=== PATIENT | male | born 1970 | race African-American/Black ===

== ENCOUNTER 2016-10-22 20:28 | Inpatient (IN) | payer MEDICARE, OTHER ==
--- NOTE | ~2016-10-22 | MR165 ---
[facility] A Service of [facility] & [facility] RADIOLOGY TEXT RESULTS PATIENT: BEN ORELLANA LOCATION: [place] [address]- : [birth year] UNIT #: [id number] AGE: [address]: Dane Gillis MD SEX: M ORDER DR: [id number] [facility] [address] [facility]. [place], [place] [address] [id number] MR#: [id number] Acc #: [id number] NAME: BEN ORELLANA. : 1970 SEX: M STUDY DATE/TIME: 10/23/2016 UNIT: [facility] ROOM: [facility] STUDY DESCRIPTION: MR Shoulder Wo Contrast Rt Attending Physician: Dane Gillis M.D. Ordering Physician: Staff Doctor Not On Primary Care Physician: John Oconnell M.D. MEDICAL IMAGING REPORT This report is preliminary unless electronic signature is present EXAM MRI of the right shoulder without contrast, 10/23/2016. COMPARISON Right shoulder radiograph, 10/22/2016. HISTORY Order states evaluate for septic shoulder. Ortho progress note states fever and right shoulder pain. 46-year-old states yesterday onset of severe right shoulder pain. No trauma or fall. History of MRSA and epidural abscess, as well as osteomyelitis. Diabetic and endstage renal failure. Tenderness over anterior shoulder with significant pain with motion. History sheet states woke up 10/23/2016 a.m. with left shoulder pain. No known injury. Bilateral toe amputations. GFR of 6.2. FINDINGS There is fluid within the acromioclavicular joint extending extra-articularly through a disrupted inferior capsuloligamentous complex. Fluid is noted interposed between the coracoacromial ligament and the distal clavicle. There is also marked subcutaneous inflammation throughout the shoulder girdle region, as well as intraarticular muscular edema of the trapezius, and anterior deltoid. Findings are most compatible with septic arthritis of the AC joint. There is also tracking fluid anterior to the coracoid process. There is no defined sizable abscess. There is only minimal inflammation of the subacromial - subdeltoid bursa. Coracoacromial and coracoclavicular ligaments are intact. There is mild infraspinatus tendinosis with insertional fraying but no tear. The remainder of the rotator cuff is unremarkable. Biceps anchor, biceps tendon, and glenoid labrum are within normal limits. [facility]. [facility] A Service of [facility] RADIOLOGY TEXT RESULTS PATIENT: BNE ORELLANA LOCATION: [place] [address] : [birth year] UNIT #: [id number] AGE: [address]: Dane Gillis MD SEX: M ORDER DR: There is minimal fluid in the glenohumeral joint without surrounding inflammation. There is no definite septic arthritis of the glenohumeral joint. There is no marrow lesion, fracture, or definitive osteomyelitis. There is mild marrow edema of the subarticular clavicle and acromion without T1 marrow replacement. IMPRESSION 1. Findings compatible with septic arthritis of the AC joint with fluid tracking through a deficient inferior capsuloligamentous complex anteriorly. Prominent fluid and inflammation are noted superior to the coracoacromial ligament and extending anterior to the coracoid process. There is, however, no defined fluid collection to suggest an abscess. 2. Extensive superior subcutaneous inflammation or cellulitis. There is also mild edema in the trapezius and deltoid muscles. 3. No MR evidence of septic arthritis of the glenohumeral joint. 4. Mild subarticular marrow edema of the acromion and clavicle adjacent to the AC joint without T1 marrow replacement. There is no definitive osteomyelitis. 5. Infraspinatus tendinosis without a rotator cuff tear. Dictated by... Nga Null M.D. THIS IS AN ELECTRONICALLY VERIFIED REPORT Nga Null M.D. at 10/26/2016 8:36 AM ERIC/melodie TD: 10/24/2016 18:09 JOB #: [id number] MEDICAL IMAGING REPORT Page 1 of 1 COPY
--- NOTE | ~2016-10-22 | OR ---
Unit #: [id number] #: [id number] Patient: BEN MENA [id number] [address] [place], [place] [address] [id number] MR#: [id number] NAME: BEN MENA ROOM: 471 Date of Procedure: 10/24/2016 Admission Date: 10/23/2016 Surgeon: Owen Peters M.D. : 1970 Attending Physician: Dane Gillis M.D. Primary Care Physician: John Oconnell M.D. OPERATIVE REPORT PREOPERATIVE DIAGNOSIS Right acromioclavicular joint septic arthritis. POSTOPERATIVE DIAGNOSIS Right acromioclavicular joint septic arthritis. PROCEDURE PERFORMED Right acromioclavicular joint arthrotomy with irrigation and debridement. ANESTHESIA General. ESTIMATED BLOOD LOSS 10 mL. SPECIMENS Cultures to microbiology. INDICATIONS FOR PROCEDURE Mr. Mena is a 46-year-old gentleman with right shoulder pain and an MRI documenting a septic AC joint arthritis. He is tender over this area. A shoulder exam itself is benign with no evidence of glenohumeral joint septic arthritis. We discussed the operative intervention in the form of incision and drainage of the AC joint. He elects to proceed. DESCRIPTION OF PROCEDURE The patient was identified in the preoperative holding area. The operative site was marked. Preoperative antibiotics were not required. The patient was on standing IV antibiotics. He was brought to the operating room and general anesthetic was induced. He was positioned on the beach-chair table in a semi-recumbent position. The right shoulder was prepped and draped in sterile fashion. An incision was made in a longitudinal fashion overlying the AC joint. Dissection was carried down through the subcutaneous tissues. The deltotrapezial fascia was identified. This was divided over the clavicle and AC joint. The superior capsule was then divided. Upon entering the AC joint, there was a small efflux of purulent fluid or material noted. The meniscal homologue was then debrided and removed from the AC joint, and some infectious-appearing debris was debrided throughout the joint Unit #: [id number] #: [id number] Patient: BEN MENA itself until we had visualization down into the subacromial space. The area was then thoroughly irrigated with bulb saline irrigation. Any remaining infectious-appearing debris or material was debrided with curettes and rongeurs. The deltotrapezial fascia was then closed back with 0 PDS followed by 2-0 PDS in the subcutaneous tissues and a running Monocryl in the skin. DISPOSITION The patient was aroused from anesthesia and transported to the recovery room in stable condition. Dictated by... Barbara Walton/rani TD: 10/24/2016 23:22 JOB #: [id number] OPERATIVE REPORT Page 1 of 1 X Owen Peters MD X PROCEDURE OPERATIVE NOTE
--- NOTE | ~2016-10-22 | CR72 ---
[facility] A Service of [facility] & [facility] RADIOLOGY TEXT RESULTS PATIENT: BEN ORELLANA LOCATION: [place] [address] : 74 UNIT #: [id number] AGE: [address]: Dane Gillis MD SEX: M ORDER DR: [id number] [facility] [address] [facility]. [place], [place] [address] [id number] MR#: [id number] Acc #: [id number] NAME: BEN ORELLANA : 1970 SEX: M STUDY DATE/TIME: 10/22/2016 21:38 UNIT: [facility] ROOM: STUDY DESCRIPTION: CR Chest Single View Portable Attending Physician: Gennaro Nieves D.O. Ordering Physician: Gennaro Nieves D.O. Primary Care Physician: John Oconnell M.D. MEDICAL IMAGING REPORT This report is preliminary unless electronic signature is present EXAM Portable chest HISTORY Chest pain today. FINDINGS Mild patchy infiltrate or atelectasis in the medial right base. Mild elevation of the right hemidiaphragm. Remainder of the lungs are clear. Lower cervical fusion. Low lung volumes accentuate the cardiac size, which is likely near the upper limits of normal. Dictated by... Ulises Diego M.D. THIS IS AN ELECTRONICALLY VERIFIED REPORT Ulises Diego M.D. at 10/23/2016 11:26 PM DFL/psc TD: 10/23/2016 00:14 JOB #: [id number] MEDICAL IMAGING REPORT Page 1 of 1 COPY
--- NOTE | ~2016-10-22 | CO ---
Unit #: [id number] #: [id number] Patient: BEN ORELLANA [id number] [address] [address] [id number] MR#: [id number] NAME: BEN ORELLANA. ROOM: 47 Age: 46 Sex: M Admission Date: 10/23/2016 : 1970 Attending Physician: Dane Gillis M.D. Primary Care Physician: John Oconnell M.D. Consultation Date: 10/28/2016 CONSULTATION REPORT The patient was admitted to Dr. Dane Gillis. REASON FOR CONSULTATION Antibiotic management in a patient with septic shoulder. HISTORY OF PRESENT ILLNESS This is a 46-year-old male with a history of high blood pressure, diabetes, and end-stage renal disease on hemodialysis since February 2016 via a left upper extremity fistula. Patient reports that he awoke with one day of shoulder pain and fever. He came to the emergency room and workup showed septic acromioclavicular joint sepsis. Patient was taken to the operating room where purulent material was found. Blood cultures on admission were positive for MRSA. Patient also had a positive right shoulder OR culture for MRSA and a right foot wound positive for MRSA. Patient was placed on vancomycin and infectious disease was asked to evaluate for length of antibiotic treatment. PAST MEDICAL HISTORY 1. Essential hypertension. 2. Diabetes. 3. MRSA epidural abscess, status post OR in February 2013. 4. Bilateral foot osteomyelitis, status post TMAs with chronic wound on the right foot. 5. End-stage renal disease on dialysis every Wednesday, Wednesday, Wednesday. 6. CVA with left-sided weakness. ALLERGIES No known allergies. MEDICATIONS The patient is currently on vancomycin being pulse dosed by the pharmacy. For other medications, please refer to patient's MRA. SOCIAL HISTORY Patient lives with others. He has positive tobacco abuse but no alcohol or IV drug abuse. REVIEW OF SYSTEMS The patient reports improvement in pain in his right shoulder. He denies any current fevers, chills, chest pain, nausea, vomiting, diarrhea, shortness of breath, or cough. He reports no change in wound to his right foot. PHYSICAL EXAMINATION Unit #: [id number] #: [id number] Patient: BEN ORELLANA VITAL SIGNS: Temperature is 99.1. His T-max this admission was 101.1 in the emergency room. Pulse of 73, blood pressure 169/74, respiratory rate of 20. GENERAL: This is a no apparent distress male who is sitting up in the bed comfortably eating breakfast. HEENT: His pupils are equal. NECK: Supple. CARDIOVASCULAR: S1, S2. Regular rate and rhythm. PULMONARY: Clear to auscultation bilaterally with no wheezes or rhonchi noted. ABDOMEN: Positive bowel sounds. Soft and nontender. EXTREMITIES: He has a left upper extremity fistula with no tenderness. He has the right shoulder in a dressing without any evidence of cellulitis, active drainage, or bleeding. He has a right foot wound that is shallow. No significant odor and has a clean wound bed. DIAGNOSTIC STUDIES LABORATORY: BUN 57, creatinine 10.6, sodium 129, potassium 4.3, chloride 90, CO2 of 24. Bilirubin 0.8, AST 35, ALT 59. CRP is 11.3 yesterday and 15.3 on admission. Current vancomycin level is 18.8. White blood cell count of 13.1 when last checked on October 26, hemoglobin 8, hematocrit 24.4, and platelets 271,000 with a sed rate most recently of 109. MICROBIOLOGY: Microbiology data shows a shoulder culture with MRSA October 23. Two of four blood cultures show MRSA with a PABLO of 1, and he has October 23 foot culture with MRSA. IMAGING: MRI of shoulder: Please see full report for complete details. In summary, it is compatible with septic arthritis of the AC joint with fluid tracking but no fluid to suggest abscess. Extensive inflammation and cellulitis in the trapezius and deltoid muscles. No septal arthritis of the glenohumeral joint. IMPRESSION This is a 46-year-old male with diabetes and end-stage renal disease on dialysis via fistula. Patient awoke with one-day history of right shoulder pain and has septic arthritis of the acromioclavicular joint status post operating room. Patient's blood cultures and acromioclavicular joint cultures were both showing methicillin-resistant Staphylococcus aureus. Without trauma or injury to the shoulder, the source is unclear and the source may have been his right foot wound that is also positive for MRSA; however, his foot wound appears to be chronic and has a clean wound bed. At this time, would also recommend to check a 2D echocardiogram of his chest if not yet done just to evaluate for methicillin-resistant Staphylococcus aureus and the presence of bacteremia on admission. Patient's blood cultures are currently negative to date. If patient's 2D echocardiogram is negative, would recommend patient to go home with vancomycin dose and adjust it after dialysis on dialysis days until December 04, 2016 with weekly CBC, BMP, CRP, and sed rate. Will continue local wound care per the surgery recommendation. Patient currently appears nontoxic at this time. Thank you for allowing us to participate in the care of this patient and further recommendations will follow pending patient's clinical course. Unit #: [id number] #: [id number] Patient: BEN ORELLANA Dictated by... Pura Monteiro A.P.R.N. for Leoncio Caceres M.D. MIKE/lamin TD: 10/28/2016 08:57 JOB #: [id number] CONSULTATION REPORT Page 1 of 1 X X CONSULTATION REPORT
--- NOTE | ~2016-10-22 | CO ---
Unit #: [id number] #: [id number] Patient: BEN MENA [id number] [address] [place], [place] [address] [id number] MR#: [id number] NAME: BEN MENA ROOM: 471 Age: 46 Sex: M Admission Date: 10/23/2016 : 1970 Attending Physician: Dane Gillis M.D. Primary Care Physician: John Oconnell M.D. Consultation Date: 10/23/2016 CONSULTATION REPORT REASON FOR CONSULTATION Management of end stage renal disease. Mr. Mena is a 46-year-old -[place] gentleman we were asked to evaluate for management of his end stage renal disease. The patient was in his usual state of health until morning when he awoke with fairly severe right sided shoulder pain. He subsequently developed a fever resulting in presentation to the emergency room. He has now been admitted for further evaluation. He reports that he had a dialysis catheter in place until approximately two weeks ago when it was removed. He reports that it was removed because his left upper arm fistula had adequately matured allowing planned removal. It was not removed for infection or other complications. He reports he has not had any other joints affected and had felt fine up until morning. History is notable, however, for a C6 epidural abscess as well as osteomyelitis related to diabetic foot wounds. PAST MEDICAL HISTORY Significant for: 1. End stage renal disease for which he has been on dialysis since February of last year. This has been attributed to diabetes and hypertension. 2. He also has a history of diabetic foot complications and is status post bilateral transmetatarsal amputations. 3. He also has a history of a prior CVA with some left sided weakness. 4. He has a history in the past of polysubstance abuse. FAMILY HISTORY Noncontributory except for coronary artery disease. SOCIAL HISTORY Significant for current smoking. He denies alcohol or substance use. ALLERGIES None known. HOME MEDICATIONS 1. Norvasc 10 mg p.o. daily. 2. Aspirin 81 mg daily. 3. Carvedilol 25 mg b.i.d. 4. Clonidine 0.3 mg t.i.d. 5. Furosemide 40 mg b.i.d. 6. Hydralazine 100 mg t.i.d. 7. Vitamin D3 5000 units daily. Unit #: [id number] #: [id number] Patient: BEN MENA 8. Lantus insulin 65 units subcu daily. 9. Humalog insulin 5 units subcu t.i.d. before meals. 10. Lipitor 80 mg daily. PHYSICAL EXAMINATION At the time of evaluation, the patient was lying in bed. He appeared somewhat uncomfortable and was cautious regarding his shoulder. He was afebrile at this time at 98.3 degrees but was noted to have run a fever of 101.1 in the commis chef hours. Blood pressure was 156/79, much better than his presentation blood pressure of 226/122. Respirations were 12 with a pulse of 73. O2 sats are running 95%. HEENT: Head was normocephalic and atraumatic. Pupils were equal, round and reactive. Sclerae and conjunctivae were clear. NECK: Supple without adenopathy. No jugular venous distension was noted. CHEST: Unremarkable. He had some tenderness over his right shoulder but no gross swelling or lesions noted. LUNGS: Clear to auscultation without rales or rhonchi. HEART: Regular rate with a normal S1 and S2. No murmurs or gallops were noted. ABDOMEN: Soft and nontender. No masses or organomegaly were noted. GENITAL/RECTAL EXAM: Deferred. EXTREMITIES: Bilateral toe amputations as noted above. No open wounds or other skin lesions were noted. Skin was dry but otherwise unremarkable. No rashes were present. NEUROLOGIC: Grossly unremarkable. DIAGNOSTIC STUDIES LABORATORY: Notable for creatinine of 10.5 with a BUN of 58. Potassium was 4.2. Hemoglobin was 10.1 with a white count of 12.2 and a platelet count of 264. IMAGING: Imaging studies showed a largely unremarkable chest x-ray. Shoulder films showed no acute findings. Ultrasound of his upper extremity veins showed no evidence of deep vein thrombosis. He did have a superficial clot in his cephalic vein extending into the basilic vein in the area of the elbow. Blood cultures were drawn but are pending at this time. IMPRESSION 1. Acute right shoulder pain with fever: He has a remote history of cervical osteomyelitis. The possibility of acute septic arthritis is under consideration. Orthopedics has been consulted. 2. Hypertension: This appears to have been controlled with reinstitution of his home medications. 3. End stage renal disease: The patient is due for dialysis today and we will make these arrangements. 4. Diabetes mellitus: This is being managed by Dr. Davis. Dictated by... Kole Guy M.D. LIZA/sona Unit #: [id number] #: [id number] Patient: BEN MENA TD: 10/23/2016 09:50 JOB #: [id number] CONSULTATION REPORT Page 1 of 1 X Kole Guy Jr, MD X CONSULTATION REPORT
--- NOTE | ~2016-10-22 | A ---
[facility] Nutrition Therapy DATE: 10/27/16 Patient: BEN ORELLANA Physician: MATT Address: [address] [place] [address] Room/Bed: [address] [place] [address], Zip: [place] [address] Admit Date: 10/23/16 Date of : [birth year] Height: 5 11 Weight: 241 109.4 NUTRITIONAL ASSESSMENT: REASON: Diet education Dx: 46 y/o male admitted for RT shoulder pain PMH: DM, HTN, MRSA, ESRD Anthropometrics: ht: 5'11" wt: 241# (109 kg) BMI 33 Labs: Na+ 129, Cl- 90, Glu 154, BUN 57, Creat 10.6, Ca++ 8.0, ALT 59, accuchecks 139-221 Meds: novolog, levemir, lovenox, vitamin D, furosemide, zofran I/O & Bowel function: 680/0. BM 7/4 Skin Integrity: open wound- R foot; amp/scars- AGUS feet/toes Edema: AGUS feet- trace; R shoulder/arm- trace Assessment: Chart reviewed, events noted. Seeing pt per immigration case worker request for diet education. Pt is diabetic and on dialysis. RD internal carver spoke to pt at bedside. Pt reports eating 2 meals a day and having an ok appetite. He reports eating no breakfast, and a chicken sandwich with potato wedges or chips for lunch/dinner. Pt reports a normal weight of 200#, and 220# before starting on dialysis. RD internal carver provided written and verbal diet education regarding carbohydrate counting and renal diet. Pt voiced questions on what fruits are good to eat. No other questions at this time. RD internal carver offered to order supplements to increase pt's PO intake and pt agreed to Nepro vanilla BID. RD will continue to follow. Dx: Inadequate oral intake r/t current clinical condition, lifestyle AEB pt reported 20# weight loss. Food and nutrition knowledge defecit r/t uncontrolled DM, lifestyle AEB need for diet education, pt reported daily intake. Intervention: 1. Diet education 2. Consistent carbohydrate diet 3. Nepro supplements Monitoring, Evaluation and Goals: 1. Intake; tolerate/consume >50% of all meals/supplements 2. Weight; promote healthy weight maintenance 3. Skin; promote healing, prevent further breakdown 4. GI; promote regular GI function [facility] Nutrition Therapy DATE: 10/27/16 Patient: BEN ORELLANA Physician: MATT Address: [address] [place] [address] Room/Bed: [address] [place] [address], Zip: [place] [address] Admit Date: 10/23/16 Date of : [birth year] Height: 5 11 Weight: 241 109.4 Recommendations: 1. Continue current consistent carbohydrate diet order. 2. Nepro vanilla BID. 3. Encourage control of DM and compliance with renal diet when d/c'd. RD will f/u per protocol as pt is at moderate nutritional risk. Respectfully, [f rep inv trans, Logistics Planning Engineer Sharlene Richardson MS, RD, LD [facility] cc: client file
--- NOTE | ~2016-10-22 | CO ---
Unit #: [id number] #: [id number] Patient: BENNY ORELLANA [id number] [address] [place], [place] [address] [id number] I MR#: [id number] NAME: BENNY ORELLANA ROOM: 471 Age: 46 Sex: M Admission Date: 10/23/2016 : 1970 Attending Physician: Dane Gillis M.D. Primary Care Physician: John Oconnell M.D. Consultation Date: 10/23/2016 CONSULTATION REPORT CHIEF COMPLAINT Right shoulder pain. HISTORY OF PRESENT ILLNESS Benny is a 46-year-old gentleman with a history significant for poorly controlled diabetes mellitus and history of MRSA infection. He is status post bilateral transmetatarsal amputations. He now presents with fever and right shoulder pain. Consultation has been requested for evaluation for septic arthritis. The patient reports pain in his right shoulder over only a one to two day duration. He is a fairly poor historian and is mentally participatory with history taking. He denies any fevers, night sweats, or chills at home. There is a note in the medical record of a fever in the ER to 101.1. His pain in the right shoulder is relieved with rest. It is worse with any attempted lifting with the right upper extremity. He has difficulty even raising it off the bed. PAST MEDICAL HISTORY 1. Hypertension, 226/122 in the emergency department. 2. Insulin-dependent diabetes mellitus, current glucose of 315. 3. History of MRSA epidural abscess. 4. Bilateral foot osteomyelitis, status post transmetatarsal amputations. 5. End-stage renal failure on hemodialysis. 6. CVA with residual left-sided weakness. PAST SURGICAL HISTORY 1. C6 corpectomy with C5-7 fusion, 2012. 2. Incision and drainage of anterior cervical wound for postoperative airway edema in 2012. 3. Status post bilateral transmetatarsal amputations. 4. Creation of AV fistula for dialysis. HOME MEDICATIONS 1. Norvasc. 2. Aspirin. 3. Coreg. 4. Clonidine. 5. Lasix. 6. Hydralazine. Unit #: [id number] #: [id number] Patient: BENNY ORELLANA 7. Vitamin D. 8. Lantus. 9. Humalog. 10. Lipitor. 11. Neurontin. ALLERGIES No known drug allergies. SOCIAL HISTORY The patient lives with his daughter. He smokes tobacco daily. He has no alcohol use. FAMILY HISTORY Noncontributory to the current illness. REVIEW OF SYSTEMS Ten systems are reviewed and positive as noted in the HPI for fever and right shoulder pain, otherwise negative. PHYSICAL EXAMINATION GENERAL APPEARANCE: Sleepy but arousable 46-year-old gentleman in no acute distress or discomfort, appearing older than stated age. PSYCHIATRIC: Awake, alert and oriented at baseline. CARDIAC: Regular rate and rhythm. PULMONARY: No increased work of breathing. Symmetric chest rise. ABDOMEN: Nondistended. NEUROLOGIC: Residual left-sided deficit from a previous CVA. SKIN: There is no overlying erythema over the right shoulder. There is no soft tissue swelling. LYMPHATICS: No lymph edema or lymphadenopathy is noted. MUSCULOSKELETAL: His right shoulder is examined. He has no pain with passive internal or external rotation with the elbow at the side; however, he has pain with attempted forward elevation off the bed, even passively. Actively, he is able to just lift the elbow off the bed with significant pain and difficulty. DIAGNOSTIC STUDIES LABORATORY: White blood cell count is 12.2. Glucose is 315. CRP is 15.3. ESR is 109. IMAGING: Plain film radiographs reviewed of the right shoulder. These demonstrate normal appearing right shoulder radiographs with no gross evidence of osteomyelitis or any other bony changes. IMPRESSION A 46-year-old gentleman with a history of prior methicillin-resistant Staphylococcus aureus infection now with fever and right shoulder pain concerning for septic arthritis. PLAN His infectious indices are elevated with abnormal ESR, CRP, and white blood cell count. However, his exam is actually fairly benign. There is no significant erythema or warmth on the shoulder. He tolerates gentle passive range of motion with elbow at the side very well; however, he has pain with passive forward elevation and with active forward elevation. While his laboratory studies are concerning, his clinical exam is somewhat Unit #: [id number] #: [id number] Patient: BENNY ORELLANA confusing. At this point, I think there is no clear clinical diagnosis of a septic shoulder. Will obtain a STAT MRI for further evaluation. He will be NPO after midnight pending the MRI. Any definitive surgical plan will be pending the results of the MRI. Dictated by... Barbara Walton TD: 10/26/2016 09:19 JOB #: [id number] CONSULTATION REPORT Page 1 of 1 X Owen Peters MD CONSULTATION REPORT
--- NOTE | ~2016-10-22 | US140 ---
[facility] A Service of [facility] RADIOLOGY TEXT RESULTS PATIENT: BEN ORELLANA LOCATION: [place] [address] : 74 UNIT #: [id number] AGE: [address]: Dane Gillis MD SEX: M ORDER DR: [id number] [facility] [address] [place], [place] [address] [id number] E MR#: [id number] Acc #: [id number] NAME: BEN ORELLANA : 1970 SEX: M STUDY DATE/TIME: 10/22/2016 21:40 UNIT: [facility] ROOM: STUDY DESCRIPTION: UE Veins Unilat or Ltd Stdy Attending Physician: Gennaro Nieves D.O. Ordering Physician: Gennaro Nieves D.O. Primary Care Physician: John Oconnell M.D. MEDICAL IMAGING REPORT This report is preliminary unless electronic signature is present EXAM Right upper extremity venous ultrasound HISTORY Right shoulder pain for 1 day. FINDINGS Ultrasound examination of the right upper extremity veins was performed with gutierrez-scale, color Doppler and spectral Doppler evaluation. The deep veins are patent and compressible. No DVT. The exam is positive for superficial clot in the cephalic vein near the elbow and extending into the forearm, and there is also superficial clot in the basilic vein near the elbow. IMPRESSION 1. No DVT in the right upper extremity. 2. The exam is positive for superficial clot in the cephalic vein near the elbow and extending into the forearm and in the basilic vein near the elbow. Dictated by... Ulises Diego M.D. THIS IS AN ELECTRONICALLY VERIFIED REPORT Ulises Diego M.D. at 10/23/2016 11:27 PM DFL/psc TD: 10/23/2016 01:29 JOB #: [id number] MEDICAL IMAGING REPORT [facility] A Service [facility] RADIOLOGY TEXT RESULTS PATIENT: BEN ORELLANA LOCATION: [place] [address] : [birth year] UNIT #: [id number] AGE: [address]: Dane Gillis MD SEX: M ORDER DR: Page 1 of 1 COPY
--- NOTE | ~2016-10-22 | CR230 ---
[facility] A Service of [facility] RADIOLOGY TEXT RESULTS PATIENT: BEN ORELLANA LOCATION: [place] [address] : [birth year] UNIT #: [id number] AGE: [address]: Dane Gillis MD SEX: M ORDER DR: [id number] [facility] [address] [facility]. [place], [place] [address] [id number] MR#: [id number] Acc #: [id number] NAME: BEN ORELLANA : 1970 SEX: M STUDY DATE/TIME: 10/22/2016 21:35 UNIT: [facility] ROOM: STUDY DESCRIPTION: CR Shoulder Min 2 View Rt Attending Physician: Gennaro Nieves D.O. Ordering Physician: Gennaro Nieves D.O. Primary Care Physician: John Oconnell M.D. MEDICAL IMAGING REPORT This report is preliminary unless electronic signature is present EXAM Right shoulder, 3 views HISTORY Shoulder pain today. No injury. FINDINGS Three views of the right shoulder demonstrate normal bone alignment. Mild degenerative changes at the acromioclavicular joint. No fracture. Lower cervical fusion. IMPRESSION No acute finding. Satisfactory shoulder alignment. Dictated by... Ulises Diego M.D. THIS IS AN ELECTRONICALLY VERIFIED REPORT Ulises Diego M.D. at 10/23/2016 11:26 PM DFL/psc TD: 10/22/2016 23:52 JOB #: [id number] MEDICAL IMAGING REPORT Page 1 of 1 COPY
--- NOTE | ~2016-10-22 | HP ---
Unit #: [id number] #: [id number] Patient: BEN ORELLANA [id number] [address] [address] [id number] I MR#: [id number] NAME: BEN ORELLANA. ROOM: 09161 Age: 46 Sex: M Admission Date: 10/23/2016 : 1970 Attending Physician: Tosha Davis M.D. Primary Care Physician: John Oconnell M.D. HISTORY AND PHYSICAL CHIEF COMPLAINT Fever and right shoulder pain. HISTORY This pleasant 46-year-old male with hypertension, diabetes mellitus, end stage renal failure, is admitted for right shoulder pain and fever. The patient states he was well until yesterday when he developed severe right shoulder pain which was nontraumatic. Denies definite fevers, sweats or chills but while in the emergency department did have a fever of 101.1. No cough, dysuria, diarrhea. Chest x-ray shows atelectasis versus mild infiltrate. When he presented to his emergency department, his blood pressure was 226/122. He was treated with Norvasc, clonidine, morphine, Zofran, Toradol. Was then given vancomycin, Zosyn and tobramycin. Does have a history of MRSA infection. PAST MEDICAL HISTORY 1. Essential hypertension. 2. Insulin dependent diabetes mellitus. 3. Admission 02/2013 for C6 MRSA epidural abscess requiring surgery. The patient did develop postop cervical edema and respiratory failure. 4. Bilateral foot osteomyelitis, status post bilateral transmetatarsal amputation with a chronic wound over the right foot. 5. End stage renal failure, on hemodialysis Mondays, Wednesdays and Fridays. 6. CVA with left sided weakness. ALLERGIES No known drug allergies. HOME MEDICATIONS 1. Norvasc 10 mg daily. 2. Aspirin 81 mg daily. 3. Coreg 25 mg b.i.d. 4. Clonidine 0.3 mg t.i.d. 5. Lasix 40 mg b.i.d. 6. Hydralazine 100 mg t.i.d. 7. Vitamin D3 5000 units daily. 8. Lantus 65 units in the morning. 9. Humalog 5 units t.i.d. before meals. 10. Lipitor 80 mg daily. 11. Neurontin 300 mg q. h.s. FAMILY HISTORY Unit #: [id number] #: [id number] Patient: BEN ORELLANA CAD. SOCIAL HISTORY The patient lives with his 13-year-old daughter. Smokes about a third pack per day of tobacco, does not drink alcohol. REVIEW OF SYSTEMS Notable for right shoulder pain, diabetes, hypertension, renal failure, previous CVA, anemia, MRSA abscess, above mentioned surgeries. All other systems were reviewed and are otherwise negative. PHYSICAL EXAMINATION GENERAL APPEARANCE: Mildly somnolent but arousable 46-year-old, mildly obese male, currently in no acute distress. VITAL SIGNS: Temperature 98.4, but was as high as 101.1, pulse 99, respirations 16, initial blood pressure 226/122, current blood pressure is 142/84. O2 saturation is 99% on room air. HEENT: Eyes PERRLA. Extraocular muscles are intact. Pharynx is benign. NECK: Supple without adenopathy or thyromegaly. CHEST: A few crackles at the right base. CARDIAC: Normal S1 and S2 without S3, S4 or murmur. ABDOMEN: Bowel sounds are present. No hepatosplenomegaly, tenderness or masses. EXTREMITIES: Mild edema right leg as compared to the left. There is a wound under the right foot which I did not yet examine, but will as soon as the dressings are removed. Pedal pulses are present. Status post bilateral transmetatarsal amputation. There is a left upper arm fistula versus graft with good thrill and good bruit. Passive movement of the right shoulder caused quite a bit of right anterior shoulder pain. NEUROLOGIC: The patient is mildly somnolent but easily arousable. He is able to move all of his extremities. DIAGNOSTIC STUDIES LABORATORY: Hematocrit is 31.3 which is stable, white blood count 12.2, normal platelet count. SMA-12 - glucose 315, BUN 58, creatinine 10.5, sodium 134, chloride is 96, ALT 59, alkaline phos. 138, troponin 0.08. Blood cultures are pending. IMAGING: Chest x-ray - mild infiltrate versus atelectasis right lung. Ultrasound of the right arm superficial DVT from the elbow to the forearm. CARDIOVASCULAR: EKG - sinus rhythm, rate 94. ASSESSMENT 1. Fever, right shoulder pain, rule out septic arthritis of the right shoulder. 2. Superficial clot of the right forearm . 3. Accelerated hypertension. 4. Insulin dependent diabetes mellitus. 5. Wound, right foot: The patient is status post bilateral transmetatarsal amputation for osteomyelitis. 6. End stage renal failure, on hemodialysis Mondays, Wednesdays and Fridays. 7. History of methicillin resistant Staph aureus. Unit #: [id number] #: [id number] Patient: BEN ORELLANA 8. Previous cerebrovascular accident. PLANS 1. Zosyn, vancomycin and one dose of tobramycin. 2. Blood cultures are pending. 3. Orthopedic surgeon to see. 4. Repeat labs in the morning, check procalcitonin level. 5. DVT prophylaxis. 6. Wound nurse to see and we will examine the foot after dressings are removed. Dictated by Barbara Tyler/sona TD: 10/23/2016 05:22 JOB #: [id number] HISTORY AND PHYSICAL Page 1 of 1 X Tosha Davis MD X HISTORY AND PHYSICAL
--- NOTE | ~2016-10-22 | DS ---
Unit #: [id number] #: [id number] Patient: BEN ORELLANA [id number] [address] [address] [id number] I MR#: [id number] NAME: BEN ORELLANA ROOM: 47 Age: 46 Sex: M Admission Date: 10/23/2016 : 1970 Discharge Date: 10/29/2016 Attending Physician: Dane Gillis M.D. Primary Care Physician: John Oconnell M.D. DISCHARGE SUMMARY DISCHARGE DIAGNOSES 1. Septic right acromial clavicular joint septic arthritis. 2. Insulin dependent diabetes mellitus. 3. Accelerated hypertension. 4. End stage renal disease. 5. Wound right foot in a patient with past bilateral transmetatarsal amputation for osteomyelitis. HOSPITAL COURSE The patient is a 46-year-old man with a history of end stage renal disease, accelerated hypertension, diabetes mellitus, prior osteomyelitis of right foot, status post transmetatarsal amputation who presents on 10/23/2016 with right shoulder pain and swelling. Orthopedics was consulted. The patient underwent right acromial clavicular joint arthrotomy with irrigation and debridement. Culture of infected fluid grew out methicillin resistant Staph aureus. The patient was treated with IV antibiotics, which will need to be continued for six weeks. During his admission the patient's diabetes was controlled with long and short acting insulin. He was continued on oral antihypertensives. He received local wound care to the right foot. The patient was discharged on 10/29/2016. His vitals were stable. His right shoulder had healed. DISCHARGE MEDICATIONS 1. Clonidine 0.3 mg p.o. t.i.d. 2. Hydralazine 100 mg p.o. t.i.d. 3. Insulin glargine 65 units subcu daily. 4. Insulin lispro 5 units subcu t.i.d. with meals. 5. Aspirin 81 mg p.o. daily. 6. Oxycodone immediate release 5 mg p.o. q.4 p.r.n. for pain. 7. Vancomycin 1 g IV post dialysis for six weeks. DISCHARGE INSTRUCTIONS 1. Followup at wound clinic with Dr. Oconnell. 2. Followup with primary care. 3. Followup with orthopedics, Dr. Peters. 4. Followup with dialysis and nephrology. Vancomycin to be given at dialysis for six weeks. 5. Followup with infectious disease. Dictated by... Barbara Bateman/anna Unit #: [id number] #: [id number] Patient: BEN ORELLANA TD: 11/02/2016 12:44 JOB #: [id number] DISCHARGE SUMMARY Page 1 of 1 X X DISCHARGE SUMMARY
--- NOTE | ~2016-10-22 | EKG ---
PATIENT: BEN ORELLANA UNIT #: [id number] Ventricular Rate: 94 BPM Atrial Rate: 94 BPM P-R Interval: 188 ms QRS Duration: 90 ms Q-T Interval: 342 ms QTC Calculation(Bezet): 427 ms P [place]: 72 degrees Calculated R [place]: 3 degrees Calculated T [place]: 70 degrees Diagnosis Line: Normal sinus rhythm Diagnosis Line: Normal ECG Diagnosis Line: No previous ECGs available Diagnosis Line: Confirmed by JESSIE ALONZO MD ([id number]) on Diagnosis Line: 10/23/2016 8:02:36 AM INTERPRETING MD: CHERI CHENEY
[~2016-10-22 20:28] MED LIST: AMLODIPINE BESY10 MG PO; BETADINE30 ML OP; CARDIZEM30 M1 PO; CHLORTHALIDONE25 MG PO; DAKIN'S MODIF1000 ML EXT; DAPTOMYCIN IV; FLEXERIL10 M1 PO; HCTZ PO; IBUPROFEN800 MG PO; LOPRESSOR100 MG PO; METFORMIN HCL500 M1 PO; NOVOLIN 70100 UNITS/ INJ; ULTRAM PO; ZESTRIL40 MG PO
[2016-10-22 21:54] LABS: POC - CKMB 1.9 ng/mL (0.0-7.9); POC - TROPONIN <0.05 ng/mL (<=0.05)
[2016-10-22 22:05] LABS: BASOPHIL# 0.1 X10e3 (0-0.3); BASOPHIL% 0.5 % (0-2.5); EOSINOPHIL# 0.1 X10e3 (0-0.7); EOSINOPHIL% 0.8 % (0.0-7.0); HEMATOCRIT 31.3 % (38.0-50.0); HEMOGLOBIN 10.1 gm/dL (13.0-16.0); LYMPHOCYTE# 1.2 X10e3 (1.0-3.5); LYMPHOCYTE% 9.7 % (17.0-45.0); MEAN CORPUSCULAR HEMOGLOBIN 29.5 PG (28-34); MEAN CORPUSCULAR HGB CONC 32.1 g/dL (30-36); MEAN PLATELET VOLUME 6.7 FL (6.5-11.5); MONOCYTE# 1.5 X10e3 (0-1.0); MONOCYTE% 12.2 % (3.0-12.0); NEUTROPHIL# 9.4 X10e3 (1.5-7.1); NEUTROPHIL% 76.8 % (40-75); PLATELET COUNT 264 X10e3 (140-420); RED CELL DISTRIBUTION WIDTH 14.1 % (11.0-15.5); WHITE BLOOD COUNT 12.2 X10e3 (4.0-10.5)
[2016-10-22 22:07] LABS: DIFF IND NO
[2016-10-22 22:52] LABS: ALBUMIN SERUM 3.8 g/dL (3.5-5.0); BILIRUBIN, DIRECT 0.1 mg/dL (0.0-0.2); BILIRUBIN,INDIRECT 0.7 mg/dL (0.0-0.9); BILIRUBIN,TOTAL 0.8 mg/dL (0.2-2.0); BUN/CREATININE RATIO 5.52; CALCIUM SERUM 9.4 mg/dL (8.4-10.2); CREATININE SERUM 10.5 mg/dL (0.6-1.4); GLOM FILT RATE Estimated 6.2 mL/min (>60); POTASSIUM 4.2 mmol/L (3.5-5.1); PROTEIN TOTAL SERUM 7.7 g/dL (6.0-8.3)
[2016-10-23] MEDS ORDERED: ASPIRIN81 M2 PO (00:58)
[2016-10-23] MEDS ORDERED: CARVEDILOL25 M1 (00:58)
[2016-10-23] MEDS ORDERED: NORVASC10 MG PO (00:58)
[2016-10-23] MEDS ORDERED: FUROSEMIDE40 MG PO (00:59)
[2016-10-23] MEDS ORDERED: VITAMIN D35000 UNI1 PO (00:59)
[2016-10-23] MEDS ORDERED: HYDRALAZINE HC100 MG PO (00:59)
[2016-10-23] MEDS ORDERED: CLONIDINE HCL0.3 MG PO (00:59)
[2016-10-23] MEDS ORDERED: LANTUS100 UNITS/ SUBQ (01:01)
[2016-10-23] MEDS ORDERED: HUMALOG100 UNIT/1 SUBQ (01:02)
[2016-10-23] MEDS ORDERED: LIPITOR80 MG PO (01:03)
[2016-10-23] MEDS ORDERED: GABAPENTIN300 MG PO (01:03)
[2016-10-24 03:35] LABS: HEMATOCRIT 25.8 % (38.0-50.0); HEMOGLOBIN 8.5 gm/dL (13.0-16.0); MEAN CELL VOLUME 91.1 FL (83-96); MEAN CORPUSCULAR HEMOGLOBIN 30.2 PG (28-34); MEAN CORPUSCULAR HGB CONC 33.1 g/dL (30-36); RED BLOOD COUNT 2.83 X10e (3.90-5.60); RED CELL DISTRIBUTION WIDTH 13.7 % (11.0-15.5); WHITE BLOOD COUNT 12.9 X10e3 (4.0-10.5)
[2016-10-24 03:48] LABS: INR 1.1; PARTIAL THROMBOPLASTIN TIME 38.4 SECONDS (23.5-31.3); PROTHROMBIN TIME (PATIENT) 11.5 SECONDS (10.0-11.7)
[2016-10-24 03:57] LABS: BUN/CREATININE RATIO 4.85; CALCIUM SERUM 8.7 mg/dL (8.4-10.2)
[2016-10-24 05:53] LABS: PROCALCITONIN 2.32 NG/ML
[2016-10-25 03:28] LABS: BASOPHIL# 0.1 X10e3 (0-0.3); BASOPHIL% 0.6 % (0-2.5); EOSINOPHIL# 0.2 X10e3 (0-0.7); EOSINOPHIL% 1.6 % (0.0-7.0); HEMATOCRIT 26.8 % (38.0-50.0); HEMOGLOBIN 8.8 gm/dL (13.0-16.0); LYMPHOCYTE# 1.6 X10e3 (1.0-3.5); LYMPHOCYTE% 10.4 % (17.0-45.0); MEAN CELL VOLUME 91.7 FL (83-96); MEAN CORPUSCULAR HGB CONC 32.7 g/dL (30-36); MONOCYTE# 1.4 X10e3 (0-1.0); MONOCYTE% 9.5 % (3.0-12.0); NEUTROPHIL# 11.8 X10e3 (1.5-7.1); NEUTROPHIL% 77.9 % (40-75); PLATELET COUNT 259 X10e3 (140-420); RED BLOOD COUNT 2.92 X10e (3.90-5.60); RED CELL DISTRIBUTION WIDTH 14.3 % (11.0-15.5); WHITE BLOOD COUNT 15.2 X10e3 (4.0-10.5)
[2016-10-25 03:29] LABS: DIFF IND NO
[2016-10-25 03:54] LABS: BUN/CREATININE RATIO 5.34; CALCIUM SERUM 8.7 mg/dL (8.4-10.2); CREATININE SERUM 8.8 mg/dL (0.6-1.4); GLOM FILT RATE Estimated 7.6 mL/min (>60); POTASSIUM 4.3 mmol/L (3.5-5.1)
[2016-10-26 03:25] LABS: HEMATOCRIT 24.4 % (38.0-50.0); MEAN CELL VOLUME 91.5 FL (83-96); MEAN CORPUSCULAR HEMOGLOBIN 29.9 PG (28-34); MEAN CORPUSCULAR HGB CONC 32.6 g/dL (30-36); MEAN PLATELET VOLUME 6.4 FL (6.5-11.5); RED BLOOD COUNT 2.67 X10e (3.90-5.60); RED CELL DISTRIBUTION WIDTH 14.4 % (11.0-15.5); WHITE BLOOD COUNT 13.1 X10e3 (4.0-10.5)
[2016-10-26 03:45] LABS: BUN/CREATININE RATIO 5.37; CREATININE SERUM 10.6 mg/dL (0.6-1.4); GLOM FILT RATE Estimated 6.1 mL/min (>60); POTASSIUM 4.3 mmol/L (3.5-5.1)
[2016-10-29] MEDS ORDERED: MIRALAX17 G2 PO (17:18)
[2016-10-29] MEDS ORDERED: OXYCODONE HCL5 M1 PO (17:19)
[2016-10-29] MEDS ORDERED: VANCOMYCIN HCL1 GM IV (17:22)
== END 2016-10-29 20:45 | disposition home or self-care (01) | DRG 853 ==
LOC: CED 20:28 → C4C 10-23 04:45 → CEDOF 10-23 04:45 → C4C 10-23 05:10 → CEDOF 10-23 05:10 → CED 10-23 05:10 → CEDOF 10-23 08:30 → C4C 10-23 08:30
PROVIDERS: Emergency Medicine; Internal Medicine; Internal Medicine Nephrology
PROC: 0RBJ0ZZ Excision of Right Shoulder Joint, Open Approach (ICD-10-PCS; principal; 2016-10-23)
PROC: 5A1D60Z (ICD-10-PCS; 2016-10-23)
DX: A41.02 Sepsis due to Methicillin resistant Staphylococcus aureus (principal); N18.6 End stage renal disease; M00.011 Staphylococcal arthritis, right shoulder; I12.0 Hypertensive chronic kidney disease with stage 5 chronic kidney disease or end stage renal disease; I69.354 Hemiplegia and hemiparesis following cerebral infarction affecting left non-dominant side; I82.611 Acute embolism and thrombosis of superficial veins of right upper extremity; I10 Essential (primary) hypertension; E11.9 Type 2 diabetes mellitus without complications; F17.210 Nicotine dependence, cigarettes, uncomplicated; Z79.82 Long term (current) use of aspirin; Z79.4 Long term (current) use of insulin; Z86.14 Personal history of Methicillin resistant Staphylococcus aureus infection; B95.62 Methicillin resistant Staphylococcus aureus infection as the cause of diseases classified elsewhere
CPT/HCPCS: 36415; 71010; 73030; 73221; 80048; 80076; 80202; 82308; 82550; 82553; 82947; 84484; 85025; 85027; 85610; 85652; 85730; 86140; 87040; 87070; 87075; 87077; 87186; 87205; 87340; 93005; 93306; 93971; 94640; 94664; 94760; 96365; 96366; 96375; 99285; J0885; J1170; J1650; J1815; J1885; J2250; J2270; J2405; J2543; J2710; J3010; J3260; J3370